=== PATIENT | male | born 1945 | race Caucasian/White ===

== ENCOUNTER → 2021-08-12 10:43 | Outpatient (CLI) | payer BC, SELFPAY ==
[2021-08-12 19:03] LABS: Hemoglobin A1C% w Est Avg Glu 5.4 % (4.0-6.0)
[2021-08-12 19:04] LABS: Alanine Aminotransferase 23 IU/L (<50); Albumin 4.4 g/dL (3.5-5.0); Albumin Globulin Ratio 1.4 (1.0-2.8); Alkaline Phosphatase 66 U/L (38-126); Aspartate Aminotransferase 34 IU/L (17-59); BUN Creatinine Ratio 20.5 (6-22); Bilirubin Total 0.8 mg/dL (0.2-1.3); Blood Urea Nitrogen 23 mg/dL (9-20); Carbon Dioxide 24 mmol/L (22-32); Chloride 103 mmol/L (98-107); Cholesterol 245 mg/dL (140-199); Estimated Glomerular Filt Rate > 60.0 mL/min (>60); Globulin 3.2 g/dL (1.7-4.1); Glucose 100 mg/dL (80-110); HDL Cholesterol 38 mg/dL (40-60); HEMOLYSIS 22 (0-50); LDL Cholesterol Calculated 183 mg/dL (<100); Potassium 5.1 mmol/L (3.4-5.1); Sodium 137 mmol/L (137-145); Total Protein 7.6 g/dL (6.3-8.2); Triglycerides 121 mg/dL (35-150); Uric Acid 8.1 mg/dL (3.5-8.5)
[2021-08-12 19:06] LABS: Add Manual Diff / Slide Review NO; Basophils Absolute Auto 100 /uL (0-100); Basophils Percent Auto 0.9 % (0-2); Eosinophils Absolute Auto 400 /uL (0-450); Eosinophils Percent Auto 6.7 % (2-4); Hemoglobin 17.9 g/dL (13.5-17.5); Lymphocytes Absolute Auto 1100 /uL (1100-4500); Lymphocytes Percent Auto 17.9 % (25-40); Mean Corpuscular HGB Conc 34.5 % (30-36); Mean Corpuscular Hemoglobin 31.8 PG (26-34); Mean Corpuscular Volume 92.3 fL (80-100); Monocytes Absolute Auto 700 /uL (0-900); Monocytes Percent Auto 11.8 % (3-14); Neutrophils Absolute Auto 3700 /uL (1500-7000); Neutrophils Percent Auto 62.7 % (50-75); Platelet Count 212 X10^3/uL (150-400); Red Blood Cell Count 5.64 X10^6/uL (4.5-5.9); Red Cell Distribution Width 13.5 % (11.6-14.8); White Blood Cell Count 5.9 X10^3/uL (4.5-11.0)
[2021-08-12 19:28] LABS: Erythrocyte Sedimentation Rate 2 MM/HR (0-15)
[2021-08-12 19:32] LABS: Prostate Specific Antigen Scrn 1.21 ng/mL (0.1-4.0)
== END ==
PROVIDERS: Visit Provider Physician Assistant
DX: I10 Essential (primary) hypertension (principal); S91.301A Unspecified open wound, right foot, initial encounter; Z12.5 Encounter for screening for malignant neoplasm of prostate; Z87.39 Personal history of other diseases of the musculoskeletal system and connective tissue
CPT/HCPCS: 80053; 80061; 83036; 84550; 85025; 85651; 87070; 87075; 87077; 87147; 87186; 87205; G0103

== ENCOUNTER → 2021-08-17 11:50 | Outpatient (CLI) | payer BC, SELFPAY | PROVIDERS: PCP Physician Assistant; Referring Provider Physician Assistant; Visit Provider Family Medicine | DX: I73.9 Peripheral vascular disease, unspecified (principal); L97.412 Non-pressure chronic ulcer of right heel and midfoot with fat layer exposed; L97.512 Non-pressure chronic ulcer of other part of right foot with fat layer exposed; L08.9 Local infection of the skin and subcutaneous tissue, unspecified; B95.61 Methicillin susceptible Staphylococcus aureus infection as the cause of diseases classified elsewhere; B96.89 Other specified bacterial agents as the cause of diseases classified elsewhere; I25.119 Atherosclerotic heart disease of native coronary artery with unspecified angina pectoris | CPT/HCPCS: 93922; 99204; 99215 ==

== ENCOUNTER → 2021-08-19 11:07 | Outpatient (CLI) | payer BC, SELFPAY ==
[2021-08-19 18:43] LABS: Uric Acid 5.5 mg/dL (3.5-8.5)
== END ==
PROVIDERS: PCP Physician Assistant; Visit Provider Physician Assistant
DX: M10.9 Gout, unspecified (principal)
CPT/HCPCS: 84550

== ENCOUNTER → 2021-08-31 11:08 | Outpatient (CLI) | payer BC, SELFPAY ==
--- NOTE | 2021-08-31 | DI.MRI.S_ITS ---
PROCEDURE: MR RUN OFF 3 STAGES ABD START INDICATIONS: Peripheral vascular disease, unspecified TECHNIQUE: Precontrast axial and coronal TruFISP acquired through the abdomen and pelvis. Multi-station dynamic coronal MRA using Care Bolus timing from the kidneys to the ankles during the administration of contrast, with 3-dimensional maximum intensity projection (MIP) reformats constructed. COMPARISON: None. FINDINGS: Image quality: Excellent. ABDOMEN: Aorta: Aortic ectasia measures up to 2.1 cm infrarenal. Occlusion. 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 There is a moderate stenosis at the origin of the upper artery and severe stenosis at the origin of the lower artery. Single left renal artery shows severe stenosis proximally. Extravascular soft tissues: Visualized solid organs are normal in size on limited pre-contrast images. Bowel loops are normal in caliber. No free fluid. No retroperitoneal or mesenteric adenopathy by size criteria. There is a large left inguinal hernia containing loops of large and small bowel extending into the scrotum, partially imaged Bones: Marrow demonstrates normal overall signal. PELVIS: There are severe stenosis noted at the origins of both internal iliac vessels. External iliac vessels are unremarkable. Both common femoral arteries are widely patent. BILATERAL LOWER EXTREMITIES: Atherosclerotic irregularity noted throughout the superficial femoral arteries. There is a focal severe stenosis involving the mid left SFA traverses a 2 cm segment. More focal severe stenosis noted in the right mid SFA. Tandem severe stenosis noted in the distal right SFA, there is a single focal severe stenosis in the left SFA as well. There is occlusion of the mid right popliteal artery with reconstitution of the anterior tibial artery through collaterals. Peroneal artery is also partially reconstituted in the calf. On the left, severe stenosis in the left trifurcation in the calf is present without occlusion. Two vessel runoff noted in the left calf. IMPRESSION: 1. Multifocal bilateral severe stenosis of both SFA in the calf with occlusion of the right popliteal artery and reconstitution of the ZANA. Bilateral 2 vessel runoff present in the calf. 2. Severe stenosis noted at the origin of both renal arteries 3. Incidental large left inguinal hernia contains loops of large and small bowel extending into the scrotum Approved by: Ben Davis M.D. on 08/31/2021 at 16:12
== END ==
PROVIDERS: PCP Physician Assistant; Referring Provider Family Medicine; Visit Provider Family Medicine
DX: I70.203 Unspecified atherosclerosis of native arteries of extremities, bilateral legs (principal); I70.1 Atherosclerosis of renal artery; K40.90 Unilateral inguinal hernia, without obstruction or gangrene, not specified as recurrent
CPT/HCPCS: C8902; C8912; C8918; A9579

== ENCOUNTER → 2021-08-31 13:32 | Outpatient (CLI) | payer BC, SELFPAY | PROVIDERS: PCP Physician Assistant; Referring Provider Physician Assistant; Visit Provider Family Medicine | DX: I70.234 Atherosclerosis of native arteries of right leg with ulceration of heel and midfoot (principal); L97.412 Non-pressure chronic ulcer of right heel and midfoot with fat layer exposed; I70.235 Atherosclerosis of native arteries of right leg with ulceration of other part of foot; L97.512 Non-pressure chronic ulcer of other part of right foot with fat layer exposed; I70.1 Atherosclerosis of renal artery; I25.119 Atherosclerotic heart disease of native coronary artery with unspecified angina pectoris | CPT/HCPCS: 99213; 99214 ==

== ENCOUNTER → 2022-05-18 16:46 | Outpatient (CLI) | payer BC, SELFPAY | PROVIDERS: PCP Physician Assistant; Visit Provider Physician Assistant | DX: R31.9 Hematuria, unspecified (principal) | CPT/HCPCS: 87086 ==

== ENCOUNTER → 2022-06-03 09:31 | Outpatient (CLI) | payer BC, SELFPAY ==
[2022-06-03 20:20] LABS: Add Manual Diff / Slide Review NO; Basophils Absolute Auto 0 /uL (0-100); Basophils Percent Auto 0.6 % (0-2); Eosinophils Absolute Auto 300 /uL (0-450); Eosinophils Percent Auto 5.1 % (2-4); Hematocrit 47.3 % (41-53); Hemoglobin 15.7 g/dL (13.5-17.5); Lymphocytes Absolute Auto 1000 /uL (1100-4500); Lymphocytes Percent Auto 15.4 % (25-40); Mean Corpuscular HGB Conc 33.1 % (30-36); Mean Corpuscular Hemoglobin 30.6 PG (26-34); Mean Corpuscular Volume 92.5 fL (80-100); Monocytes Absolute Auto 600 /uL (0-900); Monocytes Percent Auto 8.7 % (3-14); Neutrophils Absolute Auto 4700 /uL (1500-7000); Neutrophils Percent Auto 70.2 % (50-75); Platelet Count 225 X10^3/uL (150-400); Red Blood Cell Count 5.12 X10^6/uL (4.5-5.9); Red Cell Distribution Width 15.3 % (11.6-14.8); White Blood Cell Count 6.6 X10^3/uL (4.5-11.0)
[2022-06-03 20:33] LABS: Alanine Aminotransferase 32 IU/L (<50); Alkaline Phosphatase 104 U/L (38-126); Aspartate Aminotransferase 30 IU/L (17-59); BUN Creatinine Ratio 23.3 (6-22); Bilirubin Total 0.5 mg/dL (0.2-1.3); Blood Urea Nitrogen 20 mg/dL (9-20); Calcium 9.1 mg/dL (8.4-10.2); Carbon Dioxide 26 mmol/L (22-32); Chloride 102 mmol/L (98-107); Cholesterol 137 mg/dL (140-199); Estimated Glomerular Filt Rate > 60 mL/min (>60); Glucose 100 mg/dL (80-110); HDL Cholesterol 40 mg/dL (40-60); HEMOLYSIS < 15 (0-50); LDL Cholesterol Calculated 80 mg/dL (<100); Potassium 4.3 mmol/L (3.4-5.1); Sodium 138 mmol/L (137-145); Total Protein 6.9 g/dL (6.3-8.2); Triglycerides 84 mg/dL (35-150); Uric Acid 4.8 mg/dL (3.5-8.5)
[2022-06-03 21:04] LABS: Prostate Specific Antigen Scrn 1.09 ng/mL (0.1-4.0)
[2022-06-04 17:11] LABS: Albumin 3.9 g/dL (3.5-5.0); Albumin Globulin Ratio 1.3 (1.0-2.8)
== END ==
PROVIDERS: PCP Physician Assistant; Visit Provider Physician Assistant Medical
DX: I10 Essential (primary) hypertension (principal); M10.9 Gout, unspecified; S91.301A Unspecified open wound, right foot, initial encounter; E78.5 Hyperlipidemia, unspecified; M54.50 Low back pain, unspecified; Z12.5 Encounter for screening for malignant neoplasm of prostate
CPT/HCPCS: 80053; 80061; 84550; 85025; G0103

== ENCOUNTER → 2022-08-25 11:25 | Outpatient (CLI) | payer BC, SELFPAY ==
--- NOTE | 2022-08-25 11:26 | DI.CT.S_ITS ---
PROCEDURE: CT ABDOMEN PELVIS WO/W CON INDICATIONS: Asymptomatic microscopic hematuria TECHNIQUE: Optional 5 mm thick noncontrast images acquired from the diaphragm to the symphysis pubis. After the administration of intravenous contrast, 5 mm thick images acquired from the diaphragm to the symphysis pubis after a 10-minute delay. 2 mm thick coronal and sagittal reformats were then performed of the kidneys and ureters. For radiation dose reduction, the following was used: automated exposure control, adjustment of mA and/or kV according to patient size. COMPARISON: None. FINDINGS: Image quality: Good Lower chest: Basal scarring/atelectasis. There are coronary and annular calcifications of the heart. CABG changes. Solid organs: Liver is unremarkable. Gallbladder is probably folded on itself, rather than having septations, this could be confirmed with ultrasound. Gallbladder is difficult to evaluate on CT. CBD measures up to 8 mm, mildly dilated. No pathologic pancreatic ductal dilation. No splenomegaly. A left adrenal 1.8 cm adenoma is present. Bosniak 1 and 2 renal lesions are present, for which no dedicated followup is necessary per 2019 proposed guidelines. No actioanble solid renal mass identified. No hydronephrosis. No calcified stones. No ureter filling defects. There is herniation of the anterior bladder into the right inguinal hernia. This portion the bladder appears congested and thick-walled. The right inguinal hernia is lateral to the epigastric vessels. A larger left indirect inguinal hernia is also present, containing fat, mesenteric vessels and sigmoid colon. No bladder stone is identified. Vessels and lymph nodes: The main portal vein is patent. No pathologic adenopathy by size criteria. Atherosclerotic calcifications are present. No abdominal aortic aneurysm. Ectasia of the abdominal aorta, under 3 cm. Bowel and peritoneum: No bowel obstruction. Herniated sigmoid colon as described above. Moderate overall colorectal stool burden, without acute obstruction findings. No pathologic ascites. Body wall: Inguinal hernias as described above. There is also a small fat containing umbilical hernia. Pelvis: Prostate is not well evaluated on CT, overall unremarkable. Bones: No acute or suspicious osseous finding. There are degenerative changes. IMPRESSION: Bilateral indirect large inguinal hernias. On the right, this contains a portion of the bladder, which appears congested and thick-walled. On the left, this contains sigmoid colon, which does not appear obstructed. No significant upper tract disease by CT IVP. Consider cystoscopy to further evaluate the lower tracts and surgical consultation for the inguinal hernias. Gallbladder appears to be folded on itself, but this is not well evaluated on CT. There is also mild dilation of the biliary tree. Correlate with LFTs and consider ultrasound to further evaluate. Incidental left adrenal adenoma. Correlate with laboratory testing to evaluate functional status. Dictated by: Dayron Troy M.D. on 08/25/2022 at 14:28 Approved by: Dayron Troy M.D. on 08/25/2022 at 14:36
[2022-08-25 12:10] LABS: BUN Creatinine Ratio 23.2 (6-22); Blood Urea Nitrogen 22 mg/dL (9-20); Calcium 9.4 mg/dL (8.4-10.2); Carbon Dioxide 28 mmol/L (22-32); Chloride 102 mmol/L (98-107); Estimated Glomerular Filt Rate > 60 mL/min (>60); Glucose 96 mg/dL (80-110); HEMOLYSIS 21 (0-50); Potassium 4.4 mmol/L (3.4-5.1); Sodium 139 mmol/L (137-145)
== END ==
PROVIDERS: PCP Physician Assistant; Referring Provider Urology; Visit Provider Urology
DX: R31.21 Asymptomatic microscopic hematuria (principal); K40.20 Bilateral inguinal hernia, without obstruction or gangrene, not specified as recurrent; D35.02 Benign neoplasm of left adrenal gland
CPT/HCPCS: 36415; 74178; 80048; Q9967

== ENCOUNTER → 2023-06-06 10:43 | Outpatient (CLI) | payer BC, SELFPAY ==
[2023-06-06 20:00] LABS: INR 1.2 (0.9-1.3); Prothrombin Time 14.2 SECONDS (9.4-12.5)
[2023-06-06 20:03] LABS: PTT Partial Thromboplastin Tim 36 SECONDS (25.1-36.5)
[2023-06-06 20:20] LABS: Alanine Aminotransferase 29 IU/L (<50); Albumin 3.7 g/dL (3.5-5.0); Albumin Globulin Ratio 1.2 (1.0-2.8); Alkaline Phosphatase 73 U/L (38-126); Aspartate Aminotransferase 32 IU/L (17-59); BUN Creatinine Ratio 22.1 (6-22); Bilirubin Total 0.9 mg/dL (0.2-1.3); Blood Urea Nitrogen 21 mg/dL (9-20); Calcium 9.8 mg/dL (8.4-10.2); Carbon Dioxide 27 mmol/L (22-32); Chloride 101 mmol/L (98-107); Estimated Glomerular Filt Rate > 60 mL/min (>60); Globulin 3.2 g/dL (1.7-4.1); Glucose 102 mg/dL (80-110); HEMOLYSIS 19 (0-50); Potassium 4.2 mmol/L (3.4-5.1); Sodium 137 mmol/L (137-145); Total Protein 6.9 g/dL (6.3-8.2)
[2023-06-06 20:41] LABS: Add Manual Diff / Slide Review NO; Basophils Absolute Auto 100 /uL (0-100); Basophils Percent Auto 1.1 % (0-2); Eosinophils Absolute Auto 300 /uL (0-450); Eosinophils Percent Auto 4.6 % (2-4); Hematocrit 46.3 % (41-53); Hemoglobin 15.6 g/dL (13.5-17.5); Lymphocytes Absolute Auto 1200 /uL (1100-4500); Lymphocytes Percent Auto 18.1 % (25-40); Mean Corpuscular HGB Conc 33.7 % (30-36); Mean Corpuscular Hemoglobin 31.4 PG (26-34); Mean Corpuscular Volume 93.1 fL (80-100); Monocytes Absolute Auto 800 /uL (0-900); Monocytes Percent Auto 12.9 % (3-14); Neutrophils Absolute Auto 4000 /uL (1500-7000); Neutrophils Percent Auto 63.3 % (50-75); Platelet Count 198 X10^3/uL (150-400); Red Blood Cell Count 4.97 X10^6/uL (4.5-5.9); Red Cell Distribution Width 15.2 % (11.6-14.8); White Blood Cell Count 6.4 X10^3/uL (4.5-11.0)
[2023-06-07 11:11] LABS: Hemoglobin A1C% w Est Avg Glu 5.7 % (4.0-6.0)
== END ==
PROVIDERS: PCP Family Medicine; Visit Provider Family Medicine
DX: I73.9 Peripheral vascular disease, unspecified (principal); Z01.818 Encounter for other preprocedural examination; I25.10 Atherosclerotic heart disease of native coronary artery without angina pectoris; Z95.1 Presence of aortocoronary bypass graft; K40.90 Unilateral inguinal hernia, without obstruction or gangrene, not specified as recurrent; I10 Essential (primary) hypertension; Z86.73 Personal history of transient ischemic attack (TIA), and cerebral infarction without residual deficits; Z98.890 Other specified postprocedural states
CPT/HCPCS: 80053; 83036; 85025; 85610; 85730; 87086

== ENCOUNTER → 2023-06-23 10:31 | Outpatient (CLI) | payer BC, SELFPAY ==
--- NOTE | 2023-06-23 | DI.US.S_ITS ---
PROCEDURE: US CAROTID DOPPLER BI INDICATIONS: BILATERAL BRUIT TECHNIQUE: Color and pulse Doppler interrogation was performed of both carotid systems, with image documentation and velocity measurements. COMPARISON: None. FINDINGS: Stenosis calculations are based on SRU (Society of Radi[employer] in Ultras[employer]) criteria. Right side: Brachial blood pressure: 133/69 mm Hg. Common carotid artery peak systolic velocity: 127 Internal carotid artery peak systolic velocity: 376 cm/sec. Internal carotid artery end diastolic velocity: 80 cm/sec. External carotid artery peak systolic velocity: 268 cm/sec. ICA/CCA peak systolic ratio: 3.0 . Fox scale imaging description: Shows soft plaque Percent internal carotid artery stenosis: 70% to near occlusion . Vertebral artery: Flow direction is antegrade. Left side: Brachial blood pressure: 143/74 mm Hg. Common carotid artery peak systolic velocity: 119 cm/sec. Internal carotid artery peak systolic velocity: 535 cm/sec. Internal carotid artery end diastolic velocity: 156 cm/sec. External carotid artery peak systolic velocity: 241 cm/sec. ICA/CCA peak systolic ratio: 4.5 . Fox scale imaging description: Soft plaque seen Percent internal carotid artery stenosis: 70% to near occlusion . Vertebral artery: Flow direction is antegrade. 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 Dictated by: Derian Fernandez M.D. on 06/23/2023 at 16:19 Approved by: Derian Fernandez M.D. on 06/23/2023 at 16:26
== END ==
PROVIDERS: PCP Family Medicine; Referring Provider Internal Medicine Cardiovascular Disease; Visit Provider Internal Medicine Cardiovascular Disease
DX: Z01.818 Encounter for other preprocedural examination (principal); I65.23 Occlusion and stenosis of bilateral carotid arteries; R09.89 Other specified symptoms and signs involving the circulatory and respiratory systems; I25.2 Old myocardial infarction; I73.9 Peripheral vascular disease, unspecified; I25.10 Atherosclerotic heart disease of native coronary artery without angina pectoris; K40.90 Unilateral inguinal hernia, without obstruction or gangrene, not specified as recurrent; Z95.1 Presence of aortocoronary bypass graft; Z98.890 Other specified postprocedural states
CPT/HCPCS: 93880

== ENCOUNTER 2023-07-11 14:23 | Emergency (ER) | payer BC, SELFPAY ==
[2023-07-11] VITALS (15 sets, daily range): BP systolic 147–191; BP diastolic 65–77; PULSE 59–76; RESP 17–33; TEMP 36.4–37.1; O2SAT 69–97; BMI 27.3
--- NOTE | 2023-07-11 15:17 | PC.NURSE ---
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
--- NOTE | 2023-07-11 15:22 | DI.CT.S_ITS ---
PROCEDURE: CT ABDOMEN PELVIS W CON INDICATIONS: post op complication, ? bowel obstruction ?large hematoma TECHNIQUE: After the administration of intravenous contrast, axial sections acquired from the lung bases to the pubic symphysis. Coronal and sagittal reformats were performed. For radiation dose reduction, the following was used: automated exposure control, adjustment of mA and/or kV according to patient size. COMPARISON: [facility], CT, CT ABDOMEN PELVIS WO/W CON, 08/25/2022, 12:51. FINDINGS: Image quality: Diagnostic Lower chest: Bibasilar scarring/atelectasis. Coronary and annular and aortic valve calcifications are seen. Liver: Unremarkable Gallbladder and biliary system: Similar possible gallbladder folds versus septations, consider sonographic correlation.. No pathologic biliary ductal dilation Pancreas: Mild fatty atrophy. No ductal dilation Spleen: Nonenlarged Adrenals: Adrenal nodules again seen Kidneys: No hydronephrosis. No solid renal mass. Subcentimeter lesions are too small to characterize, probably cysts. These are grossly stable compared to 2022. other larger cysts are also present. Vessels and lymph nodes: Main portal vein is patent. There are atherosclerotic calcifications. No pathologic lymph nodes by size criteria. Bowel and peritoneum: No evidence of small bowel obstruction. No pathologic ascites. Body wall: Unremarkable, see below for pelvic findings Pelvis: Hemorrhage seen in the bilateral inguinal regions. Gas is seen, which may be postprocedural. Moderate to large bilateral scrotal edema, with hemorrhage. Some of this hemorrhage extends along the pericolic gutters bilaterally. Possible small contrast blush in the left inguinal region (2/106 Bones: There are degenerative changes. There is sternotomy wires. IMPRESSION: Hemorrhage is seen in the bilateral inguinal regions. Gas is probably postprocedural/postsurgical. Moderate to large bilateral scrotal edema hematomas. Some this hemorrhage extends along the pericolic gutters. Sterility is indeterminate on imaging. Possible small contrast blush on image 2/106, indeterminate for a prominent vessel versus active hemorrhagic focus. Other findings as above, likely nonacute. Dictated by: Dayron Troy M.D. on 07/11/2023 at 18:37 Approved by: Dayron Troy M.D. on 07/11/2023 at 18:44
--- NOTE | 2023-07-11 16:01 | PC.NURSE ---
Attempted IV w/ US x 1, got labs but failed to thread. No bruising at site.
[2023-07-11 16:23] LABS: Add Manual Diff / Slide Review NO; Basophils Absolute Auto 0 /uL (0-100); Basophils Percent Auto 0.4 % (0-2); Eosinophils Absolute Auto 100 /uL (0-450); Eosinophils Percent Auto 0.6 % (2-4); Hematocrit 38.7 % (41-53); Hemoglobin 13.2 g/dL (13.5-17.5); Lymphocytes Absolute Auto 800 /uL (1100-4500); Lymphocytes Percent Auto 7.8 % (25-40); Mean Corpuscular HGB Conc 34.1 % (30-36); Mean Corpuscular Hemoglobin 31.9 PG (26-34); Mean Corpuscular Volume 93.5 fL (80-100); Monocytes Absolute Auto 1600 /uL (0-900); Monocytes Percent Auto 15.2 % (3-14); Neutrophils Absolute Auto 8100 /uL (1500-7000); Platelet Count 300 X10^3/uL (150-400); Red Blood Cell Count 4.14 X10^6/uL (4.5-5.9); Red Cell Distribution Width 15.7 % (11.6-14.8); White Blood Cell Count 10.7 X10^3/uL (4.5-11.0)
[2023-07-11 16:34] LABS: Alanine Aminotransferase 18 IU/L (<50); Alkaline Phosphatase 82 U/L (38-126); Aspartate Aminotransferase 36 IU/L (17-59); BUN Creatinine Ratio 27.3 (6-22); Bilirubin Total 2.5 mg/dL (0.2-1.3); Blood Urea Nitrogen 27 mg/dL (9-20); Calcium 9.3 mg/dL (8.4-10.2); Carbon Dioxide 26 mmol/L (22-32); Chloride 97 mmol/L (98-107); Estimated Glomerular Filt Rate > 60 mL/min (>60); Globulin 4.1 g/dL (1.7-4.1); Glucose 113 mg/dL (80-110); HEMOLYSIS < 15 (0-50); Potassium 4.2 mmol/L (3.4-5.1); Sodium 135 mmol/L (137-145); Total Protein 8.1 g/dL (6.3-8.2)
[2023-07-11] MEDS: SODIUM CHLORIDE 0.9% 1,000 ML 1000 ML IV (17:32)
--- NOTE | 2023-07-11 17:55 | ED.GENADULT ---
HPI - General Adult <Jesi Talbert MD - Last Filed: 07/12/23 07:29> General Chief complaint: Abdominal Pain Stated complaint: constipated, since hernia surgery 07/05 Time Seen by Provider: 07/11/23 15:10 Source: patient Mode of arrival: Ambulatory History of Present Illness HPI narrative: 78-year-old gentleman with bilateral inguinal hernias for which he flew to [place] to have inguinal hernia repair that did not involve mesh. Surgery was done on the . He flew home yesterday and comes in today complaining that he has not had a bowel movement since surgery and is having abdominal pain. He states that he is passing gas, he has not nauseated or vomiting. He denies fever or chills. He states he has not having chest pain or dyspnea but notes that he has a bit dizzy when he stands up. He notes that his scrotum is so swollen that ?he is lost his penis? so voiding has simply been into it towel. Related Data Home Medications Medication Instructions Recorded Confirmed apixaban 2.5 mg tablet 2.5 mg PO BID 12/08/21 05/20/23 aspirin 81 mg tablet,delayed 81 mg PO DAILY 05/20/23 05/20/23 release Previous Rx's Medication Instructions Recorded acetaminophen 500 mg tablet 1,000 mg (2 x 500 mg) PO TID PRN 05/18/22 (Tylenol Extra Strength) back pain #60 tabs metoprolol tartrate 25 mg tablet 25 mg PO BID #90 tabs 11/15/22 amlodipine 5 mg tablet 5 mg PO DAILY #90 tabs 12/08/22 atorvastatin 80 mg tablet 80 mg PO DAILY #90 tabs 12/08/22 nitroglycerin 0.4 mg sublingual 0.4 mg sublingual Q5-15M PRN chest 12/09/22 tablet pain #30 tabs allopurinol 100 mg tablet See Rx Instructions .Route 03/15/23 .COMPLEX #90 tabs clotrimazole 1 % topical cream 1 applic topical BID #60 grams 05/20/23 Allergies Allergy/AdvReac Type Severity Reaction Status Date / Time Sulfa (Sulfonamide Allergy Unknown Verified 07/11/23 14:35 Antibiotics) Review of Systems <Jesi Talbert MD - Last Filed: 07/12/23 07:29> Review of Systems Narrative: Pertinent positive and negative findings as per HPI Patient History <Jesi Talbert MD - Last Filed: 07/12/23 07:29> Medical History (Updated 07/12/23 @ 07:29 by Jesi Talbert MD) Peripheral vascular disease Left inguinal hernia Lower urinary tract symptoms Asymptomatic microscopic hematuria Lumbar pain History of gout Wound of right foot Fall Social History Smoking Status: Never smoker Smoking Status: Never smoker Substance Use Type: does not use Exam <Jesi Talbert MD - Last Filed: 07/12/23 07:29> Initial Vital Signs Initial Vital Signs: Vital Signs Temperature 98.6 F 07/11/23 14:28 Pulse Rate 76 07/11/23 14:28 Respiratory Rate 18 07/11/23 14:28 Blood Pressure 155/69 H 07/11/23 14:28 Pulse Oximetry 97 07/11/23 14:28 Oxygen Delivery Method Room Air 07/11/23 14:28 General: Slightly pale in no acute distress. Able to give a complete and coherent history. Well-nourished well-developed HEENT: Moist mucous membranes, normal sclera with reactive pupils, Respiratory: Lungs are clear to auscultation, no wheezing no rales no rhonchi. Full and symmetrical air movement Cardiac: Regular rate and rhythm no murmurs no bruits Abdomen: Distended, mild diffuse tenderness, occasional borborygmi appreciated. Large postoperative hematoma into the right lower quadrant and right flank. Significant bruising to groins bilaterally with surgical incisions holding together nicely. Genitals: His scrotum is dramatically swollen, when lying flat comes to mid thigh, deep purple secondary to bruising, he describes Skin: Warm and dry, no rashes Neurologic: Grossly neurologically intact with no obvious asymmetries or abnormalities Extremities: No trauma, well perfused Psych: Cooperative, appropriate insight and affect <Rocky Nunez DO - Last Filed: 07/12/23 01:24> Initial Vital Signs Initial Vital Signs: Vital Signs Temperature 98.6 F 07/11/23 14:28 Pulse Rate 76 07/11/23 14:28 Respiratory Rate 18 07/11/23 14:28 Blood Pressure 155/69 H 07/11/23 14:28 Pulse Oximetry 97 07/11/23 14:28 Oxygen Delivery Method Room Air 07/11/23 14:28 Course <Jesi Talbert MD - Last Filed: 07/12/23 07:29> Orders Ordered: Discontinued Medications Hydromorphone HCl (Hydromorphone 1 Mg Inj) 0.5 mg IV Q15MIN PRN PRN Reason: Pain, Severe (7-10) Sodium Chloride (Normal Saline 0.9%) 1,000 mls @ 1,000 mls/hr IV BOLUS ONE Stop: 07/11/23 16:20 Last Infusion: 07/11/23 18:19 Dose: Infused Documented By: Admin: 07/11/23 17:32 Dose: 1,000 mls/hr Documented By: CATY Vital Signs Vital signs: Vital Signs - 8 hr 07/11/23 17:30 07/11/23 18:00 07/11/23 18:10 Temperature Pulse Rate 69 71 Respiratory Rate 24 Blood Pressure 181/77 H Pulse Oximetry 96 97 Oxygen Delivery Method 07/11/23 18:10 07/11/23 18:30 07/11/23 18:31 Temperature Pulse Rate 72 72 70 Respiratory Rate 20 33 H 33 H Blood Pressure Pulse Oximetry 97 95 96 Oxygen Delivery Method Room Air 07/11/23 18:31 07/11/23 20:03 07/11/23 20:07 Temperature Pulse Rate 60 59 L Respiratory Rate 26 H 30 H Blood Pressure 171/74 H Pulse Oximetry 69 L 96 Oxygen Delivery Method 07/11/23 20:07 07/11/23 20:30 07/11/23 20:31 Temperature Pulse Rate 61 Respiratory Rate 17 Blood Pressure 191/74 H 182/74 H Pulse Oximetry 95 Oxygen Delivery Method 07/11/23 20:31 07/11/23 21:25 Temperature 97.6 F 98.7 F Pulse Rate 60 65 Respiratory Rate 23 20 Blood Pressure 147/65 H Pulse Oximetry 96 96 Oxygen Delivery Method Room Air <Rocky Nunez DO - Last Filed: 07/12/23 01:24> Orders Ordered: Discontinued Medications Hydromorphone HCl (Hydromorphone 1 Mg Inj) 0.5 mg IV Q15MIN PRN PRN Reason: Pain, Severe (7-10) Sodium Chloride (Normal Saline 0.9%) 1,000 mls @ 1,000 mls/hr IV BOLUS ONE Stop: 07/11/23 16:20 Last Infusion: 07/11/23 18:19 Dose: Infused Documented By: Admin: 07/11/23 17:32 Dose: 1,000 mls/hr Documented By: CATY Vital Signs Vital signs: Vital Signs - 8 hr 07/11/23 17:30 07/11/23 18:00 07/11/23 18:10 Temperature Pulse Rate 69 71 Respiratory Rate 24 Blood Pressure 181/77 H Pulse Oximetry 96 97 Oxygen Delivery Method 07/11/23 18:10 07/11/23 18:30 07/11/23 18:31 Temperature Pulse Rate 72 72 70 Respiratory Rate 20 33 H 33 H Blood Pressure Pulse Oximetry 97 95 96 Oxygen Delivery Method Room Air 07/11/23 18:31 07/11/23 20:03 07/11/23 20:07 Temperature Pulse Rate 60 59 L Respiratory Rate 26 H 30 H Blood Pressure 171/74 H Pulse Oximetry 69 L 96 Oxygen Delivery Method 07/11/23 20:07 07/11/23 20:30 07/11/23 20:31 Temperature Pulse Rate 61 Respiratory Rate 17 Blood Pressure 191/74 H 182/74 H Pulse Oximetry 95 Oxygen Delivery Method 07/11/23 20:31 07/11/23 21:25 Temperature 97.6 F 98.7 F Pulse Rate 60 65 Respiratory Rate 23 20 Blood Pressure 147/65 H Pulse Oximetry 96 96 Oxygen Delivery Method Room Air Medical Decision Making <Jesi Talbert MD - Last Filed: 07/12/23 07:29> Lab Data 07/11/23 20:15 07/11/23 16:15 Labs: Lab Results 07/11/23 07/11/23 07/11/23 Range/Units 16:15 18:15 20:15 WBC 10.7 (4.5-11.0) X10^3/uL RBC 4.14 L (4.5-5.9) X10^6/uL Hgb 13.2 L 11.4 L 11.7 L (13.5-17.5) g/dL Hct 38.7 L 33.6 L 33.9 L (41-53) % MCV 93.5 (80-100) fL MCH 31.9 (26-34) PG MCHC 34.1 (30-36) % RDW 15.7 H (11.6-14.8) % Plt Count 300 (150-400) X10^3/uL Neut % (Auto) 76.0 H (50-75) % Lymph % (Auto) 7.8 L (25-40) % [place] % (Auto) 15.2 H (3-14) % Eos % (Auto) 0.6 L (2-4) % Baso % (Auto) 0.4 (0-2) % Neut # (Auto) 8100 H (8545-9612) /uL Lymph # (Auto) 800 L (2745-0666) /uL [place] # (Auto) 1600 H (0-900) /uL Eos # (Auto) 100 (0-450) /uL Baso # (Auto) 0 (0-100) /uL Sodium 135 L (137-145) mmol/L Potassium 4.2 (3.4-5.1) mmol/L Chloride 97 L (98-107) mmol/L Carbon Dioxide 26 (22-32) mmol/L BUN 27 H (9-20) mg/dL Creatinine 0.99 (0.66-1.25) mg/dL Estimated GFR > 60 (>60) mL/min BUN/Creatinine Ratio 27.3 H (6-22) Glucose 113 H (80-110) mg/dL Calcium 9.3 (8.4-10.2) mg/dL Total Bilirubin 2.5 H (0.2-1.3) mg/dL AST 36 (17-59) IU/L ALT 18 (<50) IU/L Alkaline Phosphatase 82 (38-126) U/L Total Protein 8.1 (6.3-8.2) g/dL Albumin 4.0 (3.5-5.0) g/dL Globulin 4.1 (1.7-4.1) g/dL Albumin/Globulin Ratio 1.0 (1.0-2.8) Blood Type O Positive Antibody Screen Negative <Rocky Nunez DO - Last Filed: 07/12/23 01:24> Lab Data Lab results reviewed: Yes I reviewed the patient's lab results. Labs: Lab Results 07/11/23 07/11/23 07/11/23 Range/Units 16:15 18:15 20:15 WBC 10.7 (4.5-11.0) X10^3/uL RBC 4.14 L (4.5-5.9) X10^6/uL Hgb 13.2 L 11.4 L 11.7 L (13.5-17.5) g/dL Hct 38.7 L 33.6 L 33.9 L (41-53) % MCV 93.5 (80-100) fL MCH 31.9 (26-34) PG MCHC 34.1 (30-36) % RDW 15.7 H (11.6-14.8) % Plt Count 300 (150-400) X10^3/uL Neut % (Auto) 76.0 H (50-75) % Lymph % (Auto) 7.8 L (25-40) % [place] % (Auto) 15.2 H (3-14) % Eos % (Auto) 0.6 L (2-4) % Baso % (Auto) 0.4 (0-2) % Neut # (Auto) 8100 H (2174-9560) /uL Lymph # (Auto) 800 L (9872-4287) /uL [place] # (Auto) 1600 H (0-900) /uL Eos # (Auto) 100 (0-450) /uL Baso # (Auto) 0 (0-100) /uL Sodium 135 L (137-145) mmol/L Potassium 4.2 (3.4-5.1) mmol/L Chloride 97 L (98-107) mmol/L Carbon Dioxide 26 (22-32) mmol/L BUN 27 H (9-20) mg/dL Creatinine 0.99 (0.66-1.25) mg/dL Estimated GFR > 60 (>60) mL/min BUN/Creatinine Ratio 27.3 H (6-22) Glucose 113 H (80-110) mg/dL Calcium 9.3 (8.4-10.2) mg/dL Total Bilirubin 2.5 H (0.2-1.3) mg/dL AST 36 (17-59) IU/L ALT 18 (<50) IU/L Alkaline Phosphatase 82 (38-126) U/L Total Protein 8.1 (6.3-8.2) g/dL Albumin 4.0 (3.5-5.0) g/dL Globulin 4.1 (1.7-4.1) g/dL Albumin/Globulin Ratio 1.0 (1.0-2.8) Blood Type O Positive Antibody Screen Negative Imaging Data CT scan - abdomen/pelvis: Radiologist's Impression: PROCEDURE: CT ABDOMEN PELVIS W CON INDICATIONS: post op complication, ? bowel obstruction ?large hematoma TECHNIQUE: After the administration of intravenous contrast, axial sections acquired from the lung bases to the pubic symphysis. Coronal and sagittal reformats were performed. For radiation dose reduction, the following was used: automated exposure control, adjustment of mA and/or kV according to patient size. COMPARISON: [facility], CT, CT ABDOMEN PELVIS WO/W CON, 08/25/2022, 12:51. FINDINGS: Image quality: Diagnostic Lower chest: Bibasilar scarring/atelectasis. Coronary and annular and aortic valve calcifications are seen. Liver: Unremarkable Gallbladder and biliary system: Similar possible gallbladder folds versus septations, consider sonographic correlation.. No pathologic biliary ductal dilation Pancreas: Mild fatty atrophy. No ductal dilation Spleen: Nonenlarged Adrenals: Adrenal nodules again seen Kidneys: No hydronephrosis. No solid renal mass. Subcentimeter lesions are too small to characterize, probably cysts. These are grossly stable compared to 2022. other larger cysts are also present. Vessels and lymph nodes: Main portal vein is patent. There are atherosclerotic calcifications. No pathologic lymph nodes by size criteria. Bowel and peritoneum: No evidence of small bowel obstruction. No pathologic ascites. Body wall: Unremarkable, see below for pelvic findings Pelvis: Hemorrhage seen in the bilateral inguinal regions. Gas is seen, which may be postprocedural. Moderate to large bilateral scrotal edema, with hemorrhage. Some of this hemorrhage extends along the pericolic gutters bilaterally. Possible small contrast blush in the left inguinal region (2/106 Bones: There are degenerative changes. There is sternotomy wires. IMPRESSION: Hemorrhage is seen in the bilateral inguinal regions. Gas is probably postprocedural/postsurgical. Moderate to large bilateral scrotal edema hematomas. Some this hemorrhage extends along the pericolic gutters. Sterility is indeterminate on imaging. Possible small contrast blush on image 2/106, indeterminate for a prominent vessel versus active hemorrhagic focus. Other findings as above, likely nonacute. MDM Narrative Medical decision making narrative: Dr nunez: Received turned over. Review patient's history and physical and workup up to this point. Patient does have extensive swelling and ecchymosis to his lower abdomen and scrotal region. He is still able to urinate. He is emptying his bladder and has A negative postvoid residual. CT scan shows extensive bruising and hematoma. I did discuss the CT report with the radiologist. He states that he could not specifically say that there was no active bleeding but felt that this was more like venous bleeding. I did discuss the case with Dr. Ayala on-call for General surgery who agreed that at this point after his surgery it is likely not any arterial bleed specifically given what surgery that he had done. The patient also states he was told by the surgeon that he would get extensive bleeding and bruising. He is actually here because he has not had a bowel movement not because of the swelling or urinary issues or pain or fevers. Initially his H&H did drop however this was in the scenario where he received 1 L fluid. We repeated the H&H once again without him receiving fluids and he is unchanged. Dr. Ayala recommended discharge home as he did not feel that there would be anything surgical. I agree with this as well. Patient is in agreement with this. We did discuss a good bowel regimen for him to have a bowel movement. We discussed specific return precautions. He expressed understanding and agreement. Discharge Plan Departure Patient Disposition: Home Clinical Impression: Swelling Constipation Qualifiers: Constipation type: unspecified constipation type Qualified Code(s): K59.00 - Constipation, unspecified Instructions: DI for Constipation Activity Restrictions/Additional Instructions: I do recommend that you can follow all of the postoperative instructions given to you by the general surgeon. I also recommend that you start taking a laxative such as MiraLax. You can purchase this [id number]. Return to the emergency department for new or worsening symptoms. Prescriptions: No Action metoprolol tartrate 25 mg tablet 25 mg PO BID Qty: 90 4RF Rx Instructions: Take one tablet in morning and one tablet in the evening. amlodipine 5 mg tablet 5 mg PO DAILY Qty: 90 3RF atorvastatin 80 mg tablet 80 mg PO DAILY Qty: 90 3RF nitroglycerin 0.4 mg tablet, sublingual 0.4 mg sublingual Q5-15M PRN (Reason: chest pain) Qty: 30 0RF Rx Instructions: do not exceed 3 doses per episode allopurinol 100 mg tablet See Rx Instructions .ROUTE .COMPLEX Qty: 90 2RF Dose Instruction: TAKE ONE TABLET BY MOUTH EVERY DAY Rx Instructions: TAKE ONE TABLET BY MOUTH EVERY DAY apixaban 2.5 mg tablet 2.5 mg PO BID acetaminophen [Tylenol Extra Strength] 500 mg tablet 1,000 mg PO TID PRN (Reason: back pain) Qty: 60 0RF aspirin 81 mg tablet,delayed release (DR/EC) 81 mg PO DAILY clotrimazole 1 % cream 1 applic topical BID Qty: 60 3RF Rx Instructions: Apply to facial rash/scaling areas b.i.d. Referrals: Zaida Lofton MD [Primary Care Provider] - Stand Alone Forms: Patient Portal/API
[2023-07-11 18:24] LABS: Hematocrit 33.6 % (41-53); Hemoglobin 11.4 g/dL (13.5-17.5)
[2023-07-11 20:24] LABS: Hematocrit 33.9 % (41-53); Hemoglobin 11.7 g/dL (13.5-17.5)
== END 2023-07-11 21:25 | disposition home or self-care (01) ==
PROVIDERS: Emergency Medicine; Emergency Provider Emergency Medicine; PCP Family Medicine
DX: K59.00 Constipation, unspecified (principal); R22.2 Localized swelling, mass and lump, trunk
CPT/HCPCS: 36415; 51798; 74177; 80053; 85014; 85018; 85025; 86850; 86900; 86901; 96360; 99284; Q9967

== ENCOUNTER 2023-12-04 09:07 | Emergency (ER) | payer BC, SELFPAY ==
[2023-12-04 09:12] VITALS: BP 164/72; PULSE 52; RESP 18; TEMP 36.3; O2SAT 98; BMI 27.5
--- NOTE | 2023-12-04 11:06 | ED_ITS ---
HPI - Back Pain/Injury General Chief Complaint: Back Pain/Injury Stated Complaint: LOWER BACK PAIN Time Seen by Provider: 12/04/23 10:54 Source: patient History of Present Illness HPI Narrative: 78-year-old male presents for 2 days of lower back pain. Patient states that it was difficult for him to get out of bed due to the pain yesterday and he wanted to be evaluated. He states that he took Tylenol which improved his pain. Today his pain is actually much less than it was yesterday. Denies bowel or bladder incontinence, denies saddle anesthesia. Denies recent falls or injuries. Related Data Home Medications Medication Instructions Recorded Confirmed aspirin 81 mg tablet,delayed 81 mg PO DAILY 05/20/23 08/23/23 release Previous Rx's Medication Instructions Recorded acetaminophen 500 mg tablet 1,000 mg (2 x 500 mg) PO TID PRN 05/18/22 (Tylenol Extra Strength) back pain #60 tabs allopurinol 100 mg tablet See Rx Instructions .Route 03/15/23 .COMPLEX prevention of gout. take every day. #90 tabs clotrimazole 1 % topical cream 1 applic topical BID #60 grams 05/20/23 amlodipine 5 mg tablet 5 mg PO DAILY for blood pressure. 08/23/23 take every day even if normal. #90 tabs apixaban 2.5 mg tablet 2.5 mg PO BID blood thinner. #120 08/23/23 tabs atorvastatin 80 mg tablet 80 mg PO DAILY for cholesterol. 08/23/23 prevents heart attack/stroke #90 tabs metoprolol tartrate 25 mg tablet 25 mg PO BID for blood pressure. 08/23/23 take every day even if normal. #90 tabs nitroglycerin 0.4 mg sublingual 0.4 mg sublingual Q5-15M PRN chest 08/23/23 tablet pain #30 tabs Allergies Allergy/AdvReac Type Severity Reaction Status Date / Time Sulfa (Sulfonamide Allergy Unknown Verified 08/23/23 11:55 Antibiotics) Review of Systems Review of Systems Narrative: See HPI Patient History Medical History Peripheral vascular disease Left inguinal hernia Lower urinary tract symptoms Asymptomatic microscopic hematuria Lumbar pain History of gout Wound of right foot Fall Social History Smoking Status: Never smoker Smoking Status: Never smoker Substance Use Type: does not use Exam Initial Vital Signs Initial Vital Signs: Vital Signs Temperature 97.4 F L 12/04/23 09:12 Pulse Rate 52 L 12/04/23 09:12 Respiratory Rate 18 12/04/23 09:12 Blood Pressure 164/72 H 12/04/23 09:12 Pulse Oximetry 98 12/04/23 09:12 Oxygen Delivery Method Room Air 12/04/23 09:12 Const: Awake, alert, no acute distress, nontoxic appearing MSK: No midline tenderness, left-sided paraspinal parasacral tenderness to deep palpation Skin: Warm, Dry, intact, no rashes Neuro: AO x3, CN II-XII grossly intact, moves all extremities Course Orders Ordered: ED Orders 12/04/23 11:05 XR lumbar spine 2-3V Stat Vital Signs Vital signs: Vital Signs - 8 hr 12/04/23 09:12 Temperature 97.4 F L Pulse Rate 52 L Respiratory Rate 18 Blood Pressure 164/72 H Pulse Oximetry 98 Oxygen Delivery Method Room Air MDM - Back Pain/Injury Imaging Data Extremity x-ray #1: Radiologist's Impression: PROCEDURE: XR LUMBAR SPINE 2-3V INDICATIONS: lumbar back pain TECHNIQUE: 3 views of the lumbar spine were acquired. COMPARISON: [facility] ([facility], XR LUMBAR SPINE 2- 3V, 05/19/2022, 10:54. FINDINGS: Bones: 5 [id number] vertebrae are present. There is very mild rightward curvature of thoracolumbar spine with apex at L1-2 level. Degenerative endplate changes, loss of disc height and bilateral facet arthrosis throughout lumbar spine is seen more notably at L3-4 and L4-5 levels.. No vertebral body compression fractures. No suspicious bony lesions. Soft tissues: Overlying bowel gas pattern is normal. No suspicious soft tissue calcifications. IMPRESSION: Moderate degenerative disc disease throughout lumbar spine. No acute compression fracture or significant spondylolisthesis. Dictated by: Don Henderson M.D. on 12/04/2023 at 12:02 Approved by: Don Henderson M.D. on 12/04/2023 at 12:03 [facility] Narrative Medical decision making narrative: Atraumatic paraspinal lumbar back pain. Improved with Tylenol, patient states his pain is actually better today than it was yesterday when he initially wanted to come in for evaluation. No signs or symptoms of cauda equina. X-ray imaging shows degenerative disc disease consistent with patient's age. Patient counseled to continue to take Tylenol as needed for pain, to apply ice or heating packs as needed for comfort. PCP follow up advised. Discharge Plan Departure Patient Disposition: Home Clinical Impression: Lumbar back pain Instructions: DI for Low Back Pain Activity Restrictions/Additional Instructions: Your x-rays today are normal. You do not have any new fracture or misalignment. Take Tylenol as needed for pain. I also recommend using lidocaine, or Salonpas patches to help relieve your pain. Gentle stretching exercises we will also help your symptoms. If these do not improve your pain after several days I recommend following up with your primary care doctor. Prescriptions: No Action allopurinol 100 mg tablet See Rx Instructions .ROUTE .COMPLEX Qty: 90 2RF Dose Instruction: TAKE ONE TABLET BY MOUTH EVERY DAY Rx Instructions: TAKE ONE TABLET BY MOUTH EVERY DAY acetaminophen [Tylenol Extra Strength] 500 mg tablet 1,000 mg PO TID PRN (Reason: back pain) Qty: 60 0RF aspirin 81 mg tablet,delayed release (DR/EC) 81 mg PO DAILY clotrimazole 1 % cream 1 applic topical BID Qty: 60 3RF Rx Instructions: Apply to facial rash/scaling areas b.i.d. atorvastatin 80 mg tablet 80 mg PO DAILY Qty: 90 3RF metoprolol tartrate 25 mg tablet 25 mg PO BID Qty: 90 4RF Rx Instructions: Take one tablet in morning and one tablet in the evening. nitroglycerin 0.4 mg tablet, sublingual 0.4 mg sublingual Q5-15M PRN (Reason: chest pain) Qty: 30 2RF Rx Instructions: do not exceed 3 doses per episode. call 911. apixaban 2.5 mg tablet 2.5 mg PO BID Qty: 120 2RF amlodipine 5 mg tablet 5 mg PO DAILY Qty: 90 3RF Referrals: Zaida Lofton MD [Primary Care Provider] - Stand Alone Forms: Patient Portal/API
[2023-12-04 12:29] VITALS: BP 175/74; PULSE 51; RESP 18; O2SAT 97
== END 2023-12-04 12:32 | disposition home or self-care (01) ==
PROVIDERS: Emergency Provider Emergency Medicine; PCP Family Medicine
DX: M54.50 Low back pain, unspecified (principal); Z79.899 Other long term (current) drug therapy
CPT/HCPCS: 72100; 99281; 99283

== ENCOUNTER → 2024-07-09 09:43 | Outpatient (CLI) | payer BC, SELFPAY ==
[2024-07-09 20:16] LABS: Add Manual Diff / Slide Review NO; Basophils Absolute Auto 0 /uL (0-100); Basophils Percent Auto 0.6 % (0-2); Eosinophils Absolute Auto 300 /uL (0-450); Hemoglobin 16.4 g/dL (13.5-17.5); Lymphocytes Absolute Auto 1200 /uL (1100-4500); Mean Corpuscular HGB Conc 34.2 % (30-36); Mean Corpuscular Hemoglobin 32.4 PG (26-34); Mean Corpuscular Volume 94.8 fL (80-100); Monocytes Absolute Auto 600 /uL (0-900); Neutrophils Absolute Auto 3600 /uL (1500-7000); Neutrophils Percent Auto 61.4 % (50-75); Platelet Count 224 X10^3/uL (150-400); Red Blood Cell Count 5.06 X10^6/uL (4.5-5.9); Red Cell Distribution Width 14.2 % (11.6-14.8); White Blood Cell Count 5.8 X10^3/uL (4.5-11.0)
[2024-07-09 20:21] LABS: Alanine Aminotransferase 30 IU/L (<50); Albumin 3.9 g/dL (3.5-5.0); Albumin Globulin Ratio 1.3 (1.0-2.8); Alkaline Phosphatase 95 U/L (38-126); Aspartate Aminotransferase 37 IU/L (17-59); BUN Creatinine Ratio 17.6 (6-22); Bilirubin Total 0.7 mg/dL (0.2-1.3); Blood Urea Nitrogen 19 mg/dL (9-20); Calcium 9.4 mg/dL (8.4-10.2); Carbon Dioxide 27 mmol/L (22-32); Chloride 104 mmol/L (98-107); Cholesterol 153 mg/dL (140-199); Estimated Glomerular Filt Rate > 60 mL/min (>60); Globulin 2.9 g/dL (1.7-4.1); Glucose 103 mg/dL (80-110); HDL Cholesterol 41 mg/dL (40-60); HEMOLYSIS 25 (0-50); LDL Cholesterol Calculated 94 mg/dL (<100); Potassium 4.2 mmol/L (3.4-5.1); Sodium 139 mmol/L (137-145); Total Protein 6.8 g/dL (6.3-8.2); Triglycerides 92 mg/dL (35-150)
[2024-07-09 20:47] LABS: Hemoglobin A1C% w Est Avg Glu 5.2 % (4.0-6.0)
[2024-07-09 20:49] LABS: Ferritin 134 ng/mL (18-464)
== END ==
PROVIDERS: PCP Family Medicine; Visit Provider Family Medicine
DX: R73.09 Other abnormal glucose (principal); I25.10 Atherosclerotic heart disease of native coronary artery without angina pectoris; E78.5 Hyperlipidemia, unspecified; I10 Essential (primary) hypertension; Z86.2 Personal history of diseases of the blood and blood-forming organs and certain disorders involving the immune mechanism
CPT/HCPCS: 80053; 80061; 82728; 83036; 85025